=== PATIENT | male | born 1995 | race Caucasian/White ===

== ENCOUNTER 2017-06-26 17:00 | Emergency (ER) | payer OTHER ==
[2017-06-26 17:16] VITALS: BP 134/76; PULSE 81; TEMP 98.6; BMI 29.2
[2017-06-26] MEDS ORDERED: IBUPROFEN 600 MG TABLET (FP) PO ONE ×2 (17:48→17:49)
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
== END 2017-06-26 18:19 | disposition home or self-care (01) ==
LOC: SUPCPDRO 17:00 → JERFT 17:00
DX: S89.81XA Other specified injuries of right lower leg, initial encounter (principal); V59.49XA Driver of pick-up truck or van injured in collision with other motor vehicles in traffic accident, initial encounter; Y92.488 Other paved roadways as the place of occurrence of the external cause; Y93.9 Activity, unspecified
CPT/HCPCS: 73562-TC-RT; 99281-25

== ENCOUNTER 2018-09-29 01:55 | Emergency (ER) | payer OTHER ==
[2018-09-29 02:46] VITALS: BP 139/92; PULSE 99; TEMP 97.8; BMI 30.7
--- NOTE | 2018-09-29 03:17 | PDOC ---
History of Present Illness - General Chief Complaint: Chest Pain Stated Complaint: CHEST PAIN Time Seen by Provider: 09/29/18 02:07 History Source: Patient Exam Limitations: No Limitations - History of Present Illness Initial Comments: 09/29/18 03:25 Best Contact:[phone] PCP:Dr. Knox Pmhx:anxiety Pshx:0 Allergies: NKDA FH:0 Social Hx: Cigarettes/ 0 Alcohol/ 0 Drugs/0 LMP:N/A 23-year-old male presents to the emergency department complaining of anxiety x 2 hours ago lasting for ~3 minutes. Patient states he was feeling anxious earlier in the day due to the recent holiday causing him to feel extremely anxious. Patient states this feels exactly the same as his recent and previous episodes when diagnosed with anxiety. Patient was seen for the same symptoms 3 days ago by his PMD and was referred to see a psychologist. Patient states he was not able to call to make an appointment but will do so tomorrow/Sunday. Patient denies fever, chills, headache, dizziness, lightheadedness, facial pains , neck pain/stiffness, back pains, shortness of breath, abdominal pains, flank pains, urinary symptoms, Jalil numbness or tingling sensation, extremity swelling or pain. Patient states his anxiety is controlled with deep inspiration and expiration and exacerbated when he goes on the Internet to look up anxiety symptoms. Approximately 15 minutes after arriving to the ER, patient insists on being discharged. Patient states he is asymptomatic at this point. Patient states his anxiety symptoms lasted for approximately 3 minutes 2 hours ago. Patient states he refuses any blood work or images and wishes to be discharged. Past History - Past Medical History Allergies/Adverse Reactions: Allergies Allergy/AdvReac Type Severity Reaction Status Date / Time No Known Allergies Allergy Verified 09/29/18 02:15 Home Medications: Ambulatory Orders NK [No Known Home Medication] 09/01/14 COPD: No - Immunization History Immunization Up to Date: Yes - Suicide/Smoking/Psychosocial Hx Smoking History: Never smoked Have you smoked in the past 12 months: No Information on smoking cessation initiated: No Hx Alcohol Use: No Drug/Substance Use Hx: No Substance Use Type: None Review of Systems - Review of Systems Able to Perform ROS?: Yes Comments:: 09/29/18 03:26 CONSTITUTIONAL: Absent: fever, chills, diaphoresis, generalized weakness, malaise, loss of appetite HEENT: Absent: rhinorrhea, nasal congestion, throat pain, throat swelling, difficulty swallowing, mouth swelling, ear pain, eye pain, visual Changes CARDIOVASCULAR: +Right pleuritic cp Absent: loss of consciousness, palpitations, irregular heart rate, peripheral edema RESPIRATORY: Absent: cough, shortness of breath, dyspnea with exertion, orthopnea, wheezing, stridor, hemoptysis GASTROINTESTINAL: Absent: abdominal pain, abdominal distension, nausea, vomiting, diarrhea, constipation, melena, hematochezia GENITOURINARY: Absent: dysuria, frequency, urgency, hesitancy, hematuria, flank pain, genital pain MUSCULOSKELETAL: Absent: myalgia, arthralgia, joint swelling SKIN: Absent: rash, itching, pallor HEMATOLOGIC/IMMUNOLOGIC: Absent: easy bleeding, easy bruising, lymphadenopathy, frequent infections ENDOCRINE: Absent: unexplained weight gain, unexplained weight loss, heat intolerance, cold intolerance NEUROLOGIC: Absent: headache, focal weakness or paresthesias, dizziness, unsteady gait, seizure, mental status changes, bladder or bowel incontinence PSYCHIATRIC: Absent: anxiety, depression, suicidal or homicidal ideation, hallucinations. Is the patient limited Nigerien proficient: No *Physical Exam - Vital Signs Last Vital Signs Temp Pulse Resp BP Pulse Ox 97.8 F 99 H 20 139/92 100 09/29/18 02:00 09/29/18 02:48 09/29/18 02:48 09/29/18 02:48 09/29/18 02:48 - Physical Exam Comments: 09/29/18 03:26 GENERAL: Well developed, well nourished. Awake and alert. No acute distress. HEENT: Normocephalic, atraumatic. PERRLA, EOMI. No conjunctival pallor. Sclera are non- icteric. Moist mucous membranes. Oropharynx is clear. NECK: Supple. Full ROM. No JVD. Carotid pulses 2+ and symmetric, without bruits. No thyromegaly. No lymphadenopathy. CARDIOVASCULAR: Regular rate and rhythm. No murmurs, rubs, or gallops. Distal pulses are 2+ and symmetric. PULMONARY: No evidence of respiratory distress. Lungs clear to auscultation bilaterally. No wheezing, rales or rhonchi. ABDOMINAL: Soft. Non-tender. Non-distended. No rebound or guarding. No organomegaly. Normoactive bowel sounds. MUSCULOSKELETAL Normal range of motion at all joints. No bony deformities or tenderness. No CVA tenderness. EXTREMITIES: No cyanosis. No clubbing. No edema. No calf tenderness. SKIN: Warm and dry. Normal capillary refill. No rashes. No jaundice. NEUROLOGICAL: Alert, awake, appropriate. Cranial nerves 2-12 intact. No deficits to light touch and temperature in face, upper extremities and lower extremities. No motor deficits in the in face, upper extremities and lower extremities. Normoreflexic in the upper and lower extremities. Normal speech. Toes are down- going bilaterally. Gait is normal without ataxia. PSYCHIATRIC: Cooperative. Good eye contact. Appropriate mood and affect. Heart Score/ECG Review - History History: Slightly suspicious - Electrocardiogram EKG: Normal - Age Age: >/= 65 - Risk Factors Based on the list above the patient has:: 1-2 risk factors - Troponin Troponin: </= normal limit - Score Heart Score - Total: 3 *DC/Admit/Observation/Transfer Diagnosis at time of Disposition: Anxiety - Discharge Dispostion Disposition: HOME Condition at time of disposition: Stable Decision to Admit order: No - Referrals Referrals: Guy Knox MD [Primary Care Provider] - - Patient Instructions Printed Discharge Instructions: DI for Anxiety -- Adult Additional Instructions: Follow-up with your psychologist Take deep breaths Return back to the ER for severe/persistent or worsening symptoms - Post Discharge Activity
--- NOTE | 2018-12-20 15:05 | EKG ---
Test Reason : Blood Pressure : / mmHG Vent. Rate : 093 BPM Atrial Rate : 093 BPM P-R Int : 148 ms QRS Dur : 104 ms QT Int : 362 ms P-R-T Axes : 059 053 040 degrees QTc Int : 450 ms NORMAL SINUS RHYTHM NON-SPECIFIC INTRA-VENTRICULAR CONDUCTION DELAY NO PREVIOUS ECGS AVAILABLE Confirmed by LAURIE LUKE MD ([id number]) on 12/20/2018 3:05:10 PM Referred By: Confirmed By:LAURIE LUKE MD
== END 2018-09-29 03:42 | disposition home or self-care (01) ==
LOC: JER 01:55
DX: F41.9 Anxiety disorder, unspecified (principal); R07.9 Chest pain, unspecified
CPT/HCPCS: 93005; 93010; 99282-25

== ENCOUNTER 2019-02-11 14:30 | Emergency (ER) | payer OTHER ==
--- NOTE | 2019-02-11 14:42 | PDOC ---
Rapid Medical Evaluation Time Seen by Provider: 02/11/19 14:41 Medical Evaluation: Allergies Allergy/AdvReac Type Severity Reaction Status Date / Time No Known Allergies Allergy Verified 02/11/19 14:41 02/11/19 14:41 I have performed a brief in-person evaluation of this patient. The patient presents with a chief complaint of: right testicular pain x2 days Pertinent physical exam findings: deferred I have ordered the following: urine, sono The patient will proceed to the ED for further evaluation. Discharge Disposition - Diagnosis Testicular pain, right - Referrals - Patient Instructions - Post Discharge Activity
[2019-02-11 14:45] VITALS: BP 137/78; PULSE 89; TEMP 98; BMI 27.3
[2019-02-11 15:07] LABS: PH,URINE 5.5 (5.0-8.0); URINE APPEARANCE CLEAR; URINE BILIRUBIN NEGATIVE (NEGATIVE); URINE COLOR YELLOW; URINE GLUCOSE (UA) NEGATIVE (NEGATIVE); URINE KETONE NEGATIVE (NEGATIVE); URINE LEUK ESTERASE NEGATIVE (NEGATIVE); URINE NITRITE NEGATIVE (NEGATIVE); URINE PROTEIN NEGATIVE (NEGATIVE); URINE UROBILINOGEN 0.2 mg/dL (0.2-1.0)
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
== END 2019-02-11 17:01 | disposition home or self-care (01) ==
LOC: JER 14:30
DX: N50.811 Right testicular pain (principal); N43.3 Hydrocele, unspecified
CPT/HCPCS: 36415; 76870-TC; 81003; 87491; 87591; 99281-25

== ENCOUNTER 2024-09-07 18:24 | Emergency (ER) | payer OTHER ==
[2024-09-07 18:32] VITALS: BP 120/76; PULSE 93; RESP 18; TEMP 97.5; BMI 27.3
[2024-09-07] MEDS ORDERED: METHOCARBAMOL 500 MG TABLET ONE (19:25)
[2024-09-07] MEDS ORDERED: IBUPROFEN 400 MG TABLET (FP) PO ONE (19:25)
[2024-09-07] MEDS: IBUPROFEN 400 MG TABLET (FP) PO ONE (19:41)
[2024-09-07] MEDS: METHOCARBAMOL 500 MG TABLET PO ONE (19:42)
== END 2024-09-07 21:39 | disposition home or self-care (01) ==
LOC: JER 18:24
DX: M54.50 Low back pain, unspecified (principal)
CPT/HCPCS: 72100-TC-FY; 99283-25

== ENCOUNTER 2025-04-30 07:20 | Day surgery (SDC) | payer OTHER ==
[2025-04-29 12:16] VITALS: BMI 29.6
[2025-04-30] MEDS ORDERED: ACETAMINOPHEN 500 MG TABLET (FP) PO PRN (08:59)
[2025-04-30] MEDS: LIDOCAINE HCL 1% PRESERVATIVE FREE - 30ML VIAL IJ ONE (15:23)
[2025-04-30] MEDS: IOHEXOL 180 MG/1 ML ML IJ ONE ×2 (15:25)
[2025-04-30] MEDS: DEXAMETHASONE SOD PHOSPHATE 10 MG/1 ML VIAL IM ONE ×2 (15:26)
[2025-04-30 18:43] VITALS: BP 122/85; PULSE 78; RESP 20; TEMP 97.3
== END 2025-04-30 15:54 | disposition home or self-care (01) ==
LOC: JASU-SURG 07:20
PROVIDERS: ATTEND Pain Medicine Pain Medicine
PROC: 3E0R3BZ Introduction of Anesthetic Agent into Spinal Canal, Percutaneous Approach (ICD-10-PCS; 2025-04-30)
PROC: 3E0R33Z Introduction of Anti-inflammatory into Spinal Canal, Percutaneous Approach (ICD-10-PCS; principal; 2025-04-30 15:15)
DX: M54.16 Radiculopathy, lumbar region (principal)
CPT/HCPCS: 76000-TC-FY; J1100